=== PATIENT | female | born 1950 | race Caucasian/White ===

== ENCOUNTER 2019-05-19 07:45 | Day surgery (SDC) | payer OTHER ==
[2019-05-19] MEDS ORDERED: LIDOCAINE 2% (SDV) 5 ML INJ (09:25)
[2019-05-19] MEDS ORDERED: PROPOFOL 200 MG INJ (09:25)
== END 2019-05-19 11:44 | disposition home or self-care (01) ==
LOC: GIL 07:45
DX: Z12.11 Encounter for screening for malignant neoplasm of colon (principal); K64.9 Unspecified hemorrhoids; E78.5 Hyperlipidemia, unspecified; I10 Essential (primary) hypertension
CPT/HCPCS: 45378